=== PATIENT | male | born 1985 | race Caucasian/White ===

== ENCOUNTER → 2021-11-30 | Outpatient (CLI) | payer BC ==
--- NOTE | 2021-11-30 22:30 | XR ---
EXAMINATION TYPE: XR chest 2V DATE OF EXAM: 11/30/2021 COMPARISON: NONE HISTORY: Z 71.3, pneumonitis TECHNIQUE: Frontal and lateral views of the chest are obtained. FINDINGS: There is patchy density seen in the right middle lobe, there may be some basilar bronchiec tasis, no pleural effusion or pneumothorax. The cardiac silhouette size is within normal limits. T he osseous structures are intact. IMPRESSION: Suspect some basilar bronchiectasis, right lower lobe, right middle lobe, chest CT may b e of benefit
== END | disposition home or self-care (01) ==
LOC: RADXRMAIN 17:36
PROVIDERS: ATTEND Nurse Practitioner Adult Health
DX: J18.9 Pneumonia, unspecified organism (principal)
CPT/HCPCS: 71046